=== PATIENT | male | born 1990 | race Caucasian/White ===

== ENCOUNTER 2016-11-14 19:31 | Emergency (ER) | payer SELFPAY ==
[~2016-11-14 19:31] MED LIST: IBUPROFEN800 M1 PO; NORCO 5/3251 TAB PO; PAXIL10 MG PO
[2016-11-14 20:58] LABS: URINE APPEARANCE CLEAR; URINE BILIRUBIN NEGATIVE (NEG); URINE BLOOD NEGATIVE (NEG); URINE COLOR YELLOW; URINE GLUCOSE (UA) NEGATIVE (NEG); URINE KETONE NEGATIVE (NEG); URINE LEUKOCYTE ESTERASE NEGATIVE (NEG); URINE NITRITE NEGATIVE (NEG); URINE PROTEIN NEGATIVE (NEG)
== END 2016-11-14 21:28 | disposition left against medical advice (07) ==
LOC: EDMED 19:31
PROVIDERS: Nurse Practitioner Family
DX: N48.89 Other specified disorders of penis (principal); F17.200 Nicotine dependence, unspecified, uncomplicated; Z98.890 Other specified postprocedural states